=== PATIENT | male | born 1960 | race African-American/Black ===

== ENCOUNTER 2021-09-19 15:29 | Emergency (ER) | payer SELFPAY ==
[~2021-09-19] VITALS: Ht 175.3 cm; Wt 101.4 kg
[~2021-09-19 15:29] MED LIST: AMLO5TAB66 PO; HYDR25TA2 PO
[2021-09-19 15:39] VITALS: BP 112/70
[2021-09-19] MEDS ORDERED: RIVA2.5T3 PO (15:41)
[2021-09-19] MEDS ORDERED: CARV6 PO (15:41)
[2021-09-19] MEDS ORDERED: LISI-894 PO (15:41)
[2021-09-19] MEDS ORDERED: ACET-66 PO (20:04)
== END 2021-09-19 20:18 | disposition home or self-care (01) ==
LOC: EMS 15:31
DX: S33.5XXA Sprain of ligaments of lumbar spine, initial encounter (principal); M16.0 Bilateral primary osteoarthritis of hip; Z79.899 Other long term (current) drug therapy; V23.4XXA Motorcycle driver injured in collision with car, pick-up truck or van in traffic accident, initial encounter; Y93.89 Activity, other specified; Y92.89 Other specified places as the place of occurrence of the external cause; Y99.8 Other external cause status
CPT/HCPCS: 99282; Z7502